=== PATIENT | male | born 1990 | race Caucasian/White ===

== ENCOUNTER 2024-12-10 14:00 | Outpatient (REF) | payer OTHER, SELFPAY ==
[2024-12-10 17:33] LABS: MANUAL DIFF FLAG NO
[2024-12-10 17:47] LABS: Hematocrit 46.4 % (42.0-52.0); Hemoglobin 15.8 g/dl (14.0-18.0); Imm Gran Abs Auto 0.08 X10*3/uL (0.00-0.03); Imm Gran Pct Auto 0.9 % (0.0-0.4); Lymphocytes Absolute Auto 3.4 X10*3/uL (1.2-4.9); Mean Corpuscular HGB Conc 34.1 g/dl (31.0-36.0); Mean Corpuscular Hemoglobin 32.8 pg (27.0-33.0); Mean Corpuscular Volume 96.5 fL (80.0-98.0); NRBC Abs Auto 0.000 X10*3/uL (0.0-0.012); NRBC Pct Auto 0.0 /100WBC (0.0-0.2); Platelet Count 241 X10*3/uL (160-400); Red Blood Count 4.81 X10*6/uL (4.60-5.80); White Blood Count 8.7 X10*3/uL (4.8-10.8)
[2024-12-10 18:10] LABS: Alanine Aminotransferase 68 U/L (0-40); Albumin Level 4.8 g/dL (3.5-5.0); Alkaline Phosphatase 52 U/L (39-117); Anion Gap 11 (12-20); Aspartate Amino Transferase 34 U/L (5-37); Blood Urea Nitrogen 14 mg/dL (9-16); Calcium 10.2 mg/dL (8.4-10.2); Carbon Dioxide 28 mmol/L (22-29); Chloride 109 mmol/L (96-108); Cholesterol 223 mg/dL (<200); Estimated Glomerular Filt Rate > 60; HDL Cholesterol 44 mg/dL (>40); Magnesium 2.5 mg/dL (1.6-2.6); Potassium 4.6 mmol/L (3.3-5.1); Sodium 143 mmol/L (135-145); Total Protein 7.3 g/dL (6.5-8.0); Triglycerides 218 mg/dL (<150)
[2024-12-10 18:29] LABS: Folate 5.3 ng/mL (> or = 4.0); Vitamin B12 796 pg/mL (200-900)
[2024-12-11 04:30] LABS: HBS Num1 5.95 mIU/mL (0-7.99); HBsAGNum1 0.39 S/CO (0.00-0.99); HIV Num 1 0.07 S/CO (0.00-0.99); Hepatitis B Surface Antigen Negative (Negative); ~HepC Num1 0.07 S/CO (0.00-0.79); ~Hepatitis B Surface Antibody NONREACTIVE (Nonreactive); ~Hepatitis C Antibody Nonreactive (Nonreactive)
[2024-12-16 12:02] LABS: VITAMIN D (1,25 OH) D3 22 pg/mL; Vit D (1,25-Dihydroxy) Total 22 pg/mL (18-72); Vitamin D (1,25 OH) D2 <8 pg/mL
== END 2024-12-10 14:01 | disposition home or self-care (01) ==
LOC: HO.HKASLDS 14:00
PROVIDERS: PCP Student in an Organized Health Care Education/Training Program; Visit Provider Student in an Organized Health Care Education/Training Program
DX: Z13.9 Encounter for screening, unspecified (principal); S89.91XA Unspecified injury of right lower leg, initial encounter; M76.51 Patellar tendinitis, right knee; M54.50 Low back pain, unspecified; G89.29 Other chronic pain; E66.9 Obesity, unspecified; R03.0 Elevated blood-pressure reading, without diagnosis of hypertension; Z28.82 Immunization not carried out because of caregiver refusal; Z68.34 Body mass index [BMI] 34.0-34.9, adult
CPT/HCPCS: 36415; 80053; 80061; 82607; 82652; 82746; 83036; 83735; 85025; 86706; 86803; 87340; 87389; 90471

== ENCOUNTER 2024-12-10 14:00 | Outpatient (AMB) | payer OTHER, SELFPAY ==
--- NOTE | 2024-12-10 14:04 | A.OFFPC_ITS ---
Vital Signs 12/10/24 14:09 Height 6 ft 4.3 in Weight 285 lb BMI 34.4 BP 145/97 H Blood Pressure Location Rt brachial Position Sitting Pulse 92 Pulse Source Pulse Oximeter Temp 99.0 F Temp Source Oral Pulse Oximetry (%) 97 Oxygen Delivery Method Room Air Intake Visit Reasons: establish care Accompanied by: Self / Same As Patient Allergies No Known Allergies Allergy (Verified 12/10/24 14:05) Tobacco use date assessed: 12/10/24 Dental Screening Dental Screen Date: 12/10/24 Did you have a dental visit in the last 12 months?: Yes HPI HPI Comments History of Present Illness Details History of Present Illness The patient is a 34-year-old male presenting for establishment of primary care, evaluation of right knee pain, assessment of chronic low back pain, and for completion of FMLA paperwork. Right Patellar Tendinitis: The patient sustained a right knee injury a week and a half ago while playing basketball. He went up for a layup, was bumped, and upon landing, felt pain originating from the bottom of his kneecap and extending upward. He was able to bear some weight but found it uncomfortable, and driving with the knee bent was difficult. He was evaluated at an orthopedic urgent care clinic the following day, where x-rays were taken, and he was diagnosed with patellar tendinitis. He was advised to rest, but the work note provided for sedentary duty could not be accommodated by his employer, necessitating an application for short-term disability. Chronic Low Back Pain: The patient has experienced intermittent low back pain for years. He describes the pain as a sharp, shooting sensation that occurs unpredictably with movements such as turning or bending. The pain resolves quickly, and he has not felt the need to take medication for acute episodes, though he does take ibuprofen prophylactically before playing sports. He previously saw a chiropractor, which was initially helpful but is no longer effective. He notes having had an x-ray of his back performed for the chiropractor. There is no history of a specific injury to his back, but he has been physically active throughout his life. Health Maintenance: This visit serves to establish primary care, as the patient has not seen a doctor in over a decade. He reports no known history of high blood pressure, diabetes, or seizures. Surgical History: - Appendectomy - Right inguinal hernia repair - History of chest tube placement at bir th for a collapsed lung Medications: - Ibuprofen, used prophylactically befor e playing sports. Social History: - Employment: The patient works at [employer], which cannot accommodate a sedentary work restriction. - Substance Use: He is a former cigarett e smoker, having smoked from approximately age 18 to 33. - Current Substance Use: He currently va pes and uses marijuana. - Illicit Drug Use: Reports having used cocaine twice in his life. - Exercise: He is physically active and regularly plays soccer and basketball. - Sleep: Reports snoring but denies gasp ing for air. - Sleep Quality: He generally feels refr eshed upon waking, depending on the amount of sleep obtained. Family History: - Mother: Recently diagnosed with diabet es mellitus. - Father: when the patient w as very young; medical history is unknown. Diagnostic Results: - X-ray of the right knee: Performed at an outside facility; report pending review. - X-ray of the low back: Previously perf ormed as ordered by a chiropractor; results not available. Past Medical History - History of appendectomy. - History of right inguinal hernia. - History of collapsed lung at . - History of premature . Health Maintenance - Order baseline laboratory studies, inc luding a complete blood count, comprehensive metabolic panel, hemoglobin A1c, lipid panel, vitamin B12, folate, vitamin D, urinalysis, and screenings for HIV, hepatitis B, and hepatitis C. - Schedule a follow-up appointment in o weeks to review laboratory results and the status of the disability paperwork. [facility] Medical History (Updated 12/10/24 @ 22:23 by Silvio Guerrero MD) Chronic lower back pain Patellar tendinitis, right knee Class 1 obesity Family History (Updated 12/10/24 @ 14:12 by Sofia Majano CMA) Mother No problems noted. Father No problems noted. Social History Housing: House Patient Tobacco Use Status: Former Tobacco user e-Cigarette/Vaping Use: Currently Using service: No Current occupational status: employed Cognitive needs: No Hearing needs: No Vision needs: Yes (rx glasses) Questionnaire PHQ-9 Over the last 2 weeks, how often have you been bothered by any of the following problems? 1. Little interest or pleasure in doing things: not at all 2. Feeling down, depressed, or hopeless: not at all 3. Trouble falling or staying asleep, or sleeping too much: not at all 4. Feeling tired or having little energy: not at all 5. Poor appetite or overeating: not at all 6. Feeling bad about yourself - or that you are a failure or have let yourself or your family down: not at all 7. Trouble concentrating on things, such as reading the newspaper or watching television: not at all 8. Moving or speaking so slowly that other people could have noticed. Or the opposite - being so fidgety or restless that you have been moving around a lot more than usual: not at all 9. Thoughts that you would be better off or of hurting yourself in some way: not at all Total score: 0 Source: Developed by Drs. Stanton Malone, Naila Mcmahan, Alessandro Dai and colleagues, with an educational aisha from [employer]. Thrive Questionnaire Date Thrive assessed: 12/10/24 I am a: Patient What is your living situation today?: I have a steady place to live Within the past 12 months, did the food you bought not last and you didn't have the money to get more?: Never true Within the past 12 months, did you worry whether your food would run out before you got money to buy more?: Never true Do you have trouble paying for medicines?: No Do you have trouble getting transportation to medical appointments?: No Do you have trouble paying your heating and electricity bill?: No Do you have trouble taking care of your child, family member or friend?: No Do you have trouble with day-to-day activities such as bathing, preparing meals, shopping, managing finances, etc.?: No Are you currently unemployed and looking for a job?: No Are you interested in more education?: Yes Please select the resources that you would like help with: None Currently or been in a relationship where the following occur: No concerns reported THRIVE Score: 0 AUDIT C Alcohol Use Questionnaire (AUDIT-C) 1. How often do you have a drink containing alcohol?: 2-3 times a week 2. How many drinks containing alcohol do you have on a typical day when you are drinking?: 3 or 4 3. How often do you have six or more drinks on one occasion?: Less than monthly Total Score: 5 SIN-7 AMB Questionnaire SIN-7 Date SIN - 7 assessed: 12/10/24 Feeling nervous, anxious, or on edge: 0 = Not at all Not being able to stop or control worryin = Not at all Worrying too much about different things: 0 = Not at all Trouble relaxin = Not at all Being so restless that it is hard to sit still: 0 = Not at all Becoming easily annoyed or irritable: 1 = Several days Feeling afraid as if something awful might happen: 0 = Not at all Total SIN-7 score (0-4 normal; 5-9 mild; 10-14 moderate; 15-21 severe): 1 Source: Developed by Drs. Stanton Malone, Naila Mcmahan, Alessandro Dai and colleagues, with an educational aisha from [employer]. Review of Systems Narrative Review of Systems - Musculoskeletal: Reports pain in the right knee. - Back: Reports chronic, intermittent, sharp, shooting pain in the lower back. - Respiratory: Reports snoring. - Respiratory: Denies waking up gasping for air. - Gastrointestinal: Reports normal bowel function. - Genitourinary: Reports normal urinary function. 10-point ROS reviewed and negative except as noted in HPI Physical exam (Primary Care) Vital Signs: Last Vital Signs Temp 99.0 F 12/10/24 14:09 Pulse 92 12/10/24 14:09 BP 145/97 H 12/10/24 14:09 Pulse Ox 97 12/10/24 14:09 Oxygen Delivery Method Room Air 12/10/24 14:09 BMI result Body Mass Index 34.4 Tobacco/Smoking Status: Tobacco use Status Tobacco use date assessed 12/10/24 12/10/24 14:06 Patient Tobacco Use Status Former Tobacco user 12/10/24 14:16 e-Cigarette/Vaping Use Currently Using 12/10/24 14:16 PHQ-9: PHQ-9 Score PHQ-9: Total score 0 12/10/24 14:22 Thrive Assessment: Date of Thrive Assessment Date Thrive assessed 12/10/24 12/10/24 14:06 Currently or been in a relationship where the following occur: No concerns reported Narrative Physical Exam General: Well-appearing, in no acute distress. Vital signs: Within normal limits. HEENT: Normocephalic, atraumatic. PERRLA, EOMI. Conjunctiva clear, sclera anicteric. Oropharynx clear, mucous membranes moist. TMs intact bilaterally. Neck: Supple, no lymphadenopathy, no thyromegaly, no JVD or carotid bruits. Cardiovascular: RRR, normal S1/S2, no murmurs, rubs, or gallops. Peripheral pulses 2+ and symmetric. No edema. Respiratory: Lungs clear to auscultation bilaterally, no wheezes, rales, or rhonchi. Normal effort. Abdomen: Soft, non-tender, non-distended. Normoactive bowel sounds. No hepatosplenomegaly, no masses. Appendix scar noted. MSK: Full range of motion, no joint swelling or deformity. Normal gait. Pain reported under the right knee, consistent with patellar tendinitis. Lower back pain noted, possibly due to herniated disc. Skin: Warm, dry, intact. No rashes, lesions, or pallor. Tube scar noted on the right side from collapsed lung at . Neuro: Alert and oriented x3. Cranial nerves II-XII intact. Strength 5/5 throughout. Sensation intact. Reflexes 2+ symmetric. Normal coordination and gait. Psych: Appropriate mood and affect. Normal judgment and insight. Office Procedures Flu Questionnaire Does the patient have a severe egg allergy?: No Does the patient have severe life threatening allergies?: No Does the patient have a fever or illness today?: No Has the patient ever had Guillain-Kasilof Syndrome?: No Has the patient ever had any past reaction to a flu shot?: No Immunizations Fluarix [id number] (PF) 45 mcg (15 mcg x 3)/0.5 mL IM syringe Performing Provider: Silvio Guerrero MD [facility] Documented (not given) by: Sofia Majano CMA on 12/10/24 14:22 Reason Not Given: Patient Refused Coding Level of Care Code New Pt Level 4 (84976) Diagnoses Right knee injury S89.91XA Patellar tendinitis, right knee M76.51 Chronic lower back pain M54.50; G89.29 Class 1 obesity E66.9 Elevated blood pressure reading R03.0 Assessment & Plan Assessment & Plan (1) Right knee injury: Code(s): S89.91XA - Unspecified injury of right lower leg, initial encounter (2) Patellar tendinitis, right knee: Code(s): M76.51 - Patellar tendinitis, right knee Category: Medical (3) Chronic lower back pain: Code(s): M54.50 - Low back pain, unspecified; G89.29 - Other chronic pain Category: Medical (4) Class 1 obesity: Code(s): E66.9 - Obesity, unspecified Category: Medical (5) Elevated blood pressure reading: Code(s): R03.0 - Elevated blood-pressure reading, without diagnosis of hypertension Plan Consent The patient provided verbal consent for the physical examination and agreed to undergo baseline laboratory testing. The patient also agreed to sign a release of information form to allow for the request of medical records from [facility]. Patient was informed and verbally consented to the use of an ambient scribe for clinic note documentation during this visit. Plan 1. Right Patellar Tendinitis - Obtain and review records from [facility], including x-ray reports, to confirm the diagnosis and work restrictions. - Complete FMLA or short-term disability paperwork for the patient's employer upon receipt and review of the orthopedic records. 2. Chronic Low Back Pain - The suspected etiology is a herniated disc causing intermittent nerve impingement. - Recommend conservative management as the initial approach. - Refer to physical therapy for back-strengthening exercises. - Advise the use of ibuprofen 800 mg as needed for pain exacerbations. Discussion Notes I discussed with the patient that his primary reason for the visit, the completion of disability paperwork for his knee injury, would be addressed once I receive the records from his orthopedic evaluation. Regarding his chronic low back pain, I explained that the symptoms are suggestive of a herniated disc and recommended a conservative approach with physical therapy for back strengthenin g, as most cases resolve with such treatment. I also informed him that an MRI is not necessary at this time, as it would likely not change the initial management plan. We discussed establishing care, as he has not seen a physician in over a decade, and I recommended a comprehensive panel of baseline laboratory tests to get an overview of his health, to which he agreed. A follow-up visit was schedu led in two weeks to review all results and the status of his paperwork. Patient Instructions - Please go to the lab for the blood work that was ordered today. - Contact our front office staff to sign a release form so we can get the notes about your knee injury from the other clinic. - We will refer you to physical therapy here to help you with exercises for your back. - You can use ibuprofen if you have a flare-up of your back pain. - Please schedule a follow-up appointment to see me in two weeks to go over your lab results. Medical Decision Making The patient is a 34-year-old male presenting for [facility] with two primary musculoskeletal complaints and a need for administrative paperwork. His right knee pain is attributed to patellar tendinitis, diagnosed at an outside facility; my role is to facilitate his disability claim by reviewing those records and completing the necessary forms. His chronic low back pain, characterized by intermittent, sharp, shooting pains, is highly suggestive of a lumbar herniated disc with radicular irritation. Given the chronicity, intermittent nature, and lack of red flag symptoms, a conservative management strategy is indicated. The plan is to initiate physical therapy for core and back strengthening, as this is the cornerstone of treatment for this condition. An MRI is deferred at this time as it would not alter the initial treatment plan. As this is an initial visit after a long hiatus from medical care, comprehensive baseline labs are being ordered for preventative screening. Follow-up in two weeks will be crucial to review results and reassess his clinical status. Total time spent caring for the patient today was 30 minutes. This includes time spent before the visit reviewing the chart, time spent documenting, and time spent reviewing laboratory results, diagnostic imaging, medications, performing a medically necessary evaluation, counseling on diagnoses, care coordination, ordering appropriate tests, ordering appropriate medications, review of tests performed by other providers, reporting test results with the patient, communication with other healthcare providers. Orders: Orders Influenza [id number] Immunization Today Z23 - Encounter for immunization Complete Blood Count Auto Diff Today Z13.9 - Encounter for screening, unspecified Hemoglobin A1c Today Z13.9 - Encounter for screening, unspecified Hepatitis C Antibody Today Z13.9 - Encounter for screening, unspecified HIV Ab/Ag Today Z13.9 - Encounter for screening, unspecified Magnesium Today Z13.9 - Encounter for screening, unspecified UA CC w/rflx Micro + Cult Today Z13.9 - Encounter for screening, unspecified Vitamin B12 and Folate Today Z13.9 - Encounter for screening, unspecified Vitamin D 1,25 dihydroxy Today Z13.9 - Encounter for screening, unspecified Comprehensive Met. Panel Today Z13.9 - Encounter for screening, unspecified Hepatitis B Surface Antibody Today Z13.9 - Encounter for screening, unspecified Hepatitis B Surface Antigen Today Z13.9 - Encounter for screening, unspecified Lipid Panel Today Z13.9 - Encounter for screening, unspecified
[2024-12-10 14:09] VITALS: BP 145/97; PULSE 92; TEMP 37.2; O2SAT 97; BMI 34.4
--- OUTSIDE RECORDS SUMMARY | 2024-12-10 17:02 | XMS_ITS | Patient Health Record ---
Author Organization [facility] Address [address] [place] [address] Support Name Relationship Address Phone SHANEL LIZARRAGA Guarantor Unknown [phone] Reason For Referral No Information Problems Problem Type SNOMED Code ICD Code Onset Dates Problem Status W/U Status Risk Notes Problem Inguinal hernia (disorder) (793765868) Inguinal hernia without mention of obstruction or gangrene, unilateral or unspecified, (not specified as recurrent) (550.90) Active confirmed Other Problem Open fracture of cervical vertebra without mention of spinal cord injury (805.1) Active confirmed Diag Problem Counseling ([id number]) Counseling NOS (V65.40) Active confirmed Diag Plan Of Treatment No Information Insurance Providers Payer Name Payer Address Payer Phone Subscriber Number Group Number Insured Name Patient Relationship to Insured Coverage Start Date Coverage End Date [facility] [address] [place] [address] [id number] SHANEL LIZARRAGA Self - patient is the insured 2 [employer] [address] [place], [place] [phone] [id number] SHANEL LIZARRAGA Self - patient is the insured
== END 2024-12-10 14:33 | disposition home or self-care (01) ==
LOC: HO.HMCFMS 14:00
PROVIDERS: PCP Student in an Organized Health Care Education/Training Program; Visit Provider Student in an Organized Health Care Education/Training Program
DX: S89.91XA Unspecified injury of right lower leg, initial encounter (principal); M76.51 Patellar tendinitis, right knee; M54.50 Low back pain, unspecified; G89.29 Other chronic pain; E66.9 Obesity, unspecified; R03.0 Elevated blood-pressure reading, without diagnosis of hypertension; Z23 Encounter for immunization

== ENCOUNTER 2024-12-25 13:51 | Outpatient (AMB) | payer OTHER, SELFPAY ==
--- NOTE | 2024-12-25 13:55 | MHC.PC.OV ---
Vital Signs 12/25/24 13:58 Height 6 ft 4.3 in Weight 286 lb 4 oz BMI 34.6 BP 139/80 Blood Pressure Location Rt brachial Position Sitting Respiration 17 Pulse 86 Pulse Source Monitor Temp 98.4 F Temp Source Oral Pulse Oximetry (%) 96 Oxygen Delivery Method Room Air Intake Visit Reasons: 2 wk - lab review Intake Note: lab review Manager Heart Failure Required: No Accompanied by: Self / Same As Patient Allergies No Known Allergies Allergy (Verified 12/25/24 13:58) Medication List - Last Reconciled 12/27/24 by Silvio Guerrero MD cholecalciferol (vitamin D3) 1,250 mcg PO QWEEK meloxicam 15 mg PO DAILY Tobacco use date assessed: 12/10/24 Dental Screening Dental Screen Date: 12/10/24 HPI HPI Comments History of Present Illness Details History of Present Illness The patient is a 34-year-old male presenting for a follow-up visit to review laboratory results and discuss work restrictions related to knee pain. Knee Pain: The patient reports intermittent flare-ups of knee pain, experiencing two flare-ups last week. He massages the knee when it hurts and only takes an anti-inflammatory medication during a flare-up. 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 Kneeling is a significant aggravating factor, causing knee pain within 10 minutes, as experienced recently while working on his pool filter on the [employer]. Hyperlipidemia: Recent lab results show a total cholesterol of 223 mg/dL, LDL of 136 mg/dL, and triglycerides of 218 mg/dL. The patient reports a propensity for drinking energy drinks and consuming fried eggs and cheeses. A liver function test showed a slightly elevated enzyme at 68, which is thought to be related to the dyslipidemia. Vitamin D Deficiency: Recent laboratory testing revealed a vitamin D level of 22 ng/mL. Elevated Blood Pressure: The patient's blood pressure at the previous visit was 145/97 mmHg. Medications: - Anti-inflammatory for knee pain, taken as needed during flare-ups. 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 - Diet: Reports consuming energy drinks, fried eggs, and cheeses. Family History: - Grandfather had a quadruple bypass surgery. Diagnostic Results: - CBC: White blood cells, red blood cells, hemoglobin, hematocrit, and platelets are noted to be great with some clinically insignificant abnormalities. - Comprehensive Metabolic Panel: Sodium and potassium are fine, and kidney function is great. - Hemoglobin A1c: 4.6%. - Glucose, random: Fine. - Liver Function Tests: One liver enzyme is elevated at 68 U/L (cutoff is 40 U/L). - Lipid Panel: Total cholesterol 223 mg/dL, triglycerides 218 mg/dL, LDL 136 mg/dL, and HDL 44 mg/dL. - Vitamin B12: Great. - Vitamin D, 25-hydroxy: 22 ng/mL (cutoff is 30 ng/mL). - Folate: Great. - Hepatitis B, Hepatitis C, HIV: Negative. Past Medical History - Knee pain with intermittent flare-ups. - Elevated blood pressure on a previous visit (145/97 mmHg). Health Maintenance - Discussed dietary modifications to manage hyperlipidemia, including reducing intake of sweet drinks, candy, fried foods, and cheeses, while increasing consumption of greens and lean proteins. - Advised to avoid stressing the knee to prevent further injury and allow for healing over the next 3 to 6 months. - A follow-up visit is recommended in 3 to 6 months to repeat labs and reassess. [facility] Medical History (Updated 12/27/24 @ 19:43 by Silvio Guerrero MD) Vitamin D deficiency Hyperlipidemia Chronic lower back pain Patellar tendinitis, right knee Class 1 obesity Family History (Updated 12/10/24 @ 14:12 by Sofia Majano CMA) Mother No problems noted. Father No problems noted. Social History Housing: House Patient Tobacco Use Status: Former Tobacco user e-Cigarette/Vaping Use: Currently Using service: No Current occupational status: employed Cognitive needs: No Hearing needs: No Vision needs: Yes (rx glasses) Questionnaire Thrive Questionnaire Date Thrive assessed: 12/08/24 I am a: Patient What is your living situation today?: I have a steady place to live Within the past 12 months, did the food you bought not last and you didn't have the money to get more?: Never true Within the past 12 months, did you worry whether your food would run out before you got money to buy more?: Never true Do you have trouble paying for medicines?: No Do you have trouble getting transportation to medical appointments?: No Do you have trouble paying your heating and electricity bill?: No Do you have trouble taking care of your child, family member or friend?: No Do you have trouble with day-to-day activities such as bathing, preparing meals, shopping, managing finances, etc.?: No Are you currently unemployed and looking for a job?: No Are you interested in more education?: Yes Please select the resources that you would like help with: None Currently or been in a relationship where the following occur: No concerns reported THRIVE Score: 0 SIN-7 AMB Questionnaire SIN-7 Date SIN - 7 assessed: 12/10/24 Source: Developed by Drs. Stanton Malone, Naila Mcmahan, Alessandro Dai and colleagues, with an educational aisha from [employer]. Review of Systems Narrative Review of Systems - Musculoskeletal: Reports intermittent knee pain that worsens with kneeling. 10-point ROS reviewed and negative except as noted in HPI Physical exam (Primary Care) Vital Signs: Last Vital Signs Temp 98.4 F 12/25/24 13:58 Pulse 86 12/25/24 13:58 Resp 17 12/25/24 13:58 BP 139/80 12/25/24 13:58 Pulse Ox 96 12/25/24 13:58 Oxygen Delivery Method Room Air 12/25/24 13:58 BMI result Body Mass Index 34.6 Tobacco/Smoking Status: Tobacco use Status Tobacco use date assessed 12/10/24 12/25/24 13:55 Patient Tobacco Use Status Former Tobacco user 12/25/24 13:55 e-Cigarette/Vaping Use Currently Using 12/25/24 13:55 Thrive Assessment: Date of Thrive Assessment Date Thrive assessed 12/08/24 12/25/24 13:55 Currently or been in a relationship where the following occur: No concerns reported Narrative Physical Exam General: Well-appearing, in no acute distress. Vital signs: Blood pressure is 139/80, slightly elevated but improved from previous visit. HEENT: Normocephalic, atraumatic. PERRLA, EOMI. Conjunctiva clear, sclera anicteric. Oropharynx clear, mucous membranes moist. TMs intact bilaterally. Neck: Supple, no lymphadenopathy, no thyromegaly, no JVD or carotid bruits. Cardiovascular: RRR, normal S1/S2, no murmurs, rubs, or gallops. Peripheral pulses 2+ and symmetric. No edema. Respiratory: Lungs clear to auscultation bilaterally, no wheezes, rales, or rhonchi. Normal effort. Abdomen: Soft, non-tender, non-distended. Normoactive bowel sounds. No hepatosplenomegaly, no masses. MSK: Full range of motion, no joint swelling or deformity. Normal gait. Patient reports knee pain with kneeling and extended hours on feet; advised to take a five-minute break every 30 to 45 minutes. Skin: Warm, dry, intact. No rashes, lesions, or pallor. Neuro: Alert and oriented x3. Cranial nerves II-XII intact. Strength 5/5 throughout. Sensation intact. Reflexes 2+ symmetric. Normal coordination and gait. Psych: Appropriate mood and affect. Normal judgment and insight. Coding Level of Care Code Est Pt Level 3 (88679) Diagnoses Patellar tendinitis, right knee M76.51 Class 1 obesity E66.9 Hyperlipidemia E78.5 Vitamin D deficiency E55.9 Assessment & Plan Assessment & Plan (1) Patellar tendinitis, right knee: Code(s): M76.51 - Patellar tendinitis, right knee Category: Medical (2) Class 1 obesity: Code(s): E66.9 - Obesity, unspecified Category: Medical (3) Hyperlipidemia: Code(s): E78.5 - Hyperlipidemia, unspecified Category: Medical (4) Vitamin D deficiency: Code(s): E55.9 - Vitamin D deficiency, unspecified Category: Medical Plan Consent Patient was informed and verbally consented to the use of an ambient scribe for clinic note documentation during this visit. Plan 1. Knee Pain - A work accommodation letter will be provided to the patient via email. - Recommended work restrictions include no kneeling and taking a 5-minute break every 30 to 45 minutes. - The patient was advised not to push himself and to rest the knee as much as possible for the next 3 to 6 months to allow for healing. - Will provide [facility] paperwork for intermittent leave as requested. 2. Hyperlipidemia - Management will consist of lifestyle changes for six months, with no medication prescribed at this time. - Dietary recommendations include avoiding sweet drinks, candy, fried eggs, and cheeses, while increasing consumption of greens, lean meats, and beans. - Plan to repeat lipid panel in six months to assess response to lifestyle modifications. 3. Vitamin D Deficiency - Will prescribe vitamin D capsules to be taken once a week. 4. Elevated Blood Pressure - Continue to monitor BP. Today's reading of 139/80 mmHg is an improvement from the previous 145/97 mmHg. - No pharmacologic intervention is indicated at this time. Discussion Notes I reviewed the patient's recent lab results with him. I explained that while some minor abnormalities were present on his CBC, they were not clinically significant. I informed him that his kidneys and liver are functioning well, he is not diabetic, and his serologies for hepatitis and HIV are negative. We discussed his elevated cholesterol, LDL, and triglycerides, and I explained that the slightly elevated liver enzyme is likely related to this. I advised lifestyle and dietary changes for six months rather than starting medication, including avoiding sugary drinks and fatty foods like fried eggs and cheese. I also informed him of his low vitamin D level and will be prescribing a once-weekly supplement. We discussed his knee pain and its exacerbation by work activities, particularly kneeling. We agreed on work restrictions of no kneeling and taking a 5-minute break every 30-45 minutes, and I will provide a letter outlining this which will be emailed to him. A follow-up appointment in 3 to 6 months was recommended for reassessment and to repeat labs. Patient Instructions - A doctor's note for your work will be emailed to you today. - Your work restrictions include no kneeling and taking a 5-minute break every 30 to 45 minutes. - Avoid putting too much stress on your knee for the next 3 to 6 months to allow it to heal. - To help lower your cholesterol, reduce your intake of sweet drinks (like energy drinks), candy, fried eggs, and cheeses. - Increase your intake of greens, lean meats like chicken and fish, and beans. - Take the prescribed vitamin D capsule once every week. - Please make a follow-up appointment to be seen in 3 to 6 months to repeat your lab work. Medical Decision Making The patient is a 34-year-old male presenting for follow-up of knee pain and lab review. His knee pain is mechanical in nature, clearly exacerbated by activities such as kneeling. The decision was made to provide work restrictions to avoid aggravating activities, allow for healing over 3-6 months, and prevent further injury, rather than pursuing more aggressive diagnostics at this time. Review of his labs revealed new findings of mild dyslipidemia and vitamin D deficiency. The dyslipidemia (total cholesterol 223, LDL 136, triglycerides 218) is not severe enough to warrant immediate pharmacotherapy, especially given the patient's age. A trial of therapeutic lifestyle changes focusing on diet is the most appropriate first step, with a plan to re-evaluate in 6 months. The slightly elevated liver enzyme is likely related to the dyslipidemia and is expected to improve with dietary changes. The vitamin D level of 22 is deficient and requires supplementation, for which a weekly prescription was sent. His blood pressure reading of 139/80, while elevated, is an improvement from his prior reading and does not require intervention at this time, though it will be monitored. Other lab results, including CBC, metabolic panel, and A1c, were reassuring and without clinical concern. Total Time Statement 20 min Total time spent caring for the patient today includes pre-visit chart review, documentation, review of laboratory and diagnostic imaging results, medication reconciliation, medically necessary evaluation, counseling on diagnoses, care coordination, ordering appropriate tests and medications, review of tests performed by other providers, reporting test results to the patient, and communication with other healthcare providers. Medications: New cholecalciferol (vitamin D3) 1,250 mcg PO QWEEK 12 caps 0RF
[2024-12-25 13:58] VITALS: BP 139/80; PULSE 86; RESP 17; TEMP 36.9; O2SAT 96; BMI 34.6
--- OUTSIDE RECORDS SUMMARY | 2024-12-25 20:22 | XMS_ITS | Patient Health Record ---
Author Organization [facility] Address [address] [place] [address] Support Name Relationship Address Phone SHANEL LIZARRAGA Guarantor Unknown [phone] Reason For Referral No Information Problems Problem Type SNOMED Code ICD Code Onset Dates Problem Status W/U Status Risk Notes Problem Inguinal hernia (disorder) (922191965) Inguinal hernia without mention of obstruction or gangrene, unilateral or unspecified, (not specified as recurrent) (550.90) Active confirmed Other Problem Open fracture of cervical vertebra without mention of spinal cord injury (805.1) Active confirmed Diag Problem Counseling (096847310) Counseling NOS (V65.40) Active confirmed Diag Plan Of Treatment No Information Insurance Providers Payer Name Payer Address Payer Phone Subscriber Number Group Number Insured Name Patient Relationship to Insured Coverage Start Date Coverage End Date [facility] [address] [place] [address] [id number] SHANEL LIZARRAGA Self - patient is the insured 2 [employer] [address] [place], [place] [id number] [phone] [id number] SHANEL LIZARRAGA Self - patient is the insured
== END 2024-12-25 14:20 | disposition home or self-care (01) ==
LOC: HO.HMCFMS 13:52
PROVIDERS: Visit Provider Student in an Organized Health Care Education/Training Program
DX: M76.51 Patellar tendinitis, right knee (principal); E66.9 Obesity, unspecified; E78.5 Hyperlipidemia, unspecified; E55.9 Vitamin D deficiency, unspecified